=== PATIENT | male | born 1940 | race Caucasian/White ===

== ENCOUNTER 2019-06-22 05:00 | Inpatient (IN) ==
[2019-06-16 12:53] LABS: Appearance,Urine CLEAR; Bilirubin,Urine NEG (NEG); Color,Urine YELLOW; Glucose,Urine (UA) NEGATIVE (NEG); Ketones,Urine NEG (NEG); Leukocyte Esterase,Urine NEG /uL (NEG); Nitrate,Urine NEG (NEG); Protein,Urine NEG (NEG); Specific Gravity,Urine 1.014 (1.000-1.035); Urine Blood NEG mg/dL (<0.03); Urobilinogen,Urine NEG (NEG)
[2019-06-16 14:48] LABS: Blood Urea Nitrogen 19 mg/dl (8-23); Calcium 9.2 mg/dl (8.6-10.4); Carbon Dioxide 25 mmol/L (22-30); Chloride 103 mmol/L (96-108); Glomerular Filtration Rate 82; Glucose 103 mg/dL (70-105)
[2019-06-16 14:55] LABS: Basophils # (Auto) 0 K/mcL (0.0-0.3); Basophils % (Auto) 0.5 % (0.0-2.0); Eosinophils # (Auto) 0.2 K/mcL (0.0-0.7); Eosinophils % (Auto) 2.5 % (0.0-7.0); Granulocytes % (Auto) 54.2 % (38.0-78.0); Hematocrit 43.4 % (41.0-55.0); Hemoglobin 14.5 g/dL (13.5-16.5); Lymphocytes # (Auto) 2.3 K/mcL (1.5-4.8); Lymphocytes % (Auto) 34.7 % (15.5-49.0); Mean Cell Volume 96.3 fL (80.0-100.0); Mean Corpuscular HGB Conc 33.5 g/dL (31.0-36.0); Mean Platelet Volume 7.9 fL (7.4-10.4); Monocytes # (Auto) 0.5 K/mcL (0.1-0.9); Monocytes % (Auto) 8.1 % (1.0-12.0); Platelet Count 251 K/mcL (140-440); RBC 4.51 M/mcL (4.50-5.90); WBC 6.5 K/mcL (4.5-11.0)
[~2019-06-22 05:00] MED LIST: IPRATROPIUM/ALBUTEROL 3 ML AMPUL.NEB NEB PRN; SCOPOLAMINE 1 PATCH PATCH TOPICAL PRN
[2019-06-22] MEDS ORDERED: ceFAZolin 2 GM in DEXTROSE 5% IN WATER 50 ML IV SCH (06:00)
[2019-06-22] MEDS ORDERED: 0.9 % SODIUM CHLORIDE 9 ML, KETOROLAC 30 MG, ROPIVACAINE HCL/PF 49.5 ML, EPINEPHrine 0.... IJ SCH (06:00)
[2019-06-22] MEDS ORDERED: CELECOXIB 200 MG CAPSULE PO SCH (06:00)
[2019-06-22] MEDS ORDERED: oxyCODONE 10 MG TAB.ER.12H PO SCH (06:00)
[2019-06-22] MEDS ORDERED: PREGABALIN 75 MG CAPSULE PO SCH (06:00)
[2019-06-22] MEDS ORDERED: ePHEDrine 50 MG/ML AMPUL IV ONE (07:25)
[2019-06-22] MEDS ORDERED: ROPIVACAINE HCL/PF 20 ML VIAL IJ ONE (07:25)
[2019-06-22] MEDS ORDERED: ONDANSETRON 4 MG/2 ML VIAL IV ONE (07:25)
[2019-06-22] MEDS ORDERED: PROPOFOL 200 MG/20 ML VIAL IV ONE (07:25)
[2019-06-22] MEDS ORDERED: LIDOCAINE HCL/PF 100 MG/5 ML SYRINGE IV ONE (07:25)
[2019-06-22] MEDS ORDERED: KETAMINE 100 MG/ML ML IV ONE (07:25)
[2019-06-22] MEDS ORDERED: DEXAMETHASONE 10 MG/ML VIAL IV ONE (07:25)
[2019-06-22] MEDS ORDERED: TRANEXAMIC ACID 1,000 MG/10 ML VIAL IV ONE (07:25)
[2019-06-22] MEDS ORDERED: GENTAMICIN SULFATE 800 MG/20 ML VIAL IR ONE (08:24)
--- NOTE | 2019-06-22 09:00 | Brief Operative Note ---
Date of procedure: 06/22/19 Pre-op diagnosis: left knee osteoarthritis Post-op diagnosis: same Procedure: left total knee arthroplasty Grafts/Implants: Yes Anesthesia: spinal Complications: none Surgeon: Brian Lovett Top Spotter: Dahiana Pro Estimated blood loss (cc): 200 Tourniquet Time (Minutes): 56 Specimens Removed/Pathology: none sent Condition: stable Disposition: PACU
--- NOTE | 2019-06-22 09:02 | Discharge Summary ---
Ortho Discharge - TKA - Patient Instructions Diet: Regular Diet Activity: ambulate with assistive device, weight bearing as tolerated Total Knee Protocol: For Total Knee: Start ROM JOSÉ MIGUEL with stationary bike or rocking chair. Work on gaining full extension of knee. Posterior dislocation precautions provided. Hip abductor strengthening and gait training instructions provided. Apply Cryocuff as instructed. Dressing Care: May shower in 2 days - Follow Up Plan Follow Up Appointments: Dahiana Pro PA-C [Physician Freight Sorter] - 07/07/19 8:40 am Disposition: Home, Self-Care Prognosis: Good Rehab Potential: Good I certify that the patient requires SNF services: No Overall status at discharge: patient is progressing back to baseline
[2019-06-22] MEDS ORDERED: POLYETHYLENE GLYCOL 3350 17 GM PACKET PO PRN (09:03)
[2019-06-22] MEDS ORDERED: MAGNESIUM HYDROXIDE 30 ML ORAL.SUSP PO PRN (09:03)
[2019-06-22] MEDS ORDERED: BISACODYL 10 MG SUPP.RECT PR PRN (09:03)
[2019-06-22] MEDS ORDERED: ONDANSETRON 4 MG ODT TABLET SL PRN (09:03)
[2019-06-22] MEDS ORDERED: BENZOCAINE/MENTHOL 1 LOZENGE PO PRN ×2 (09:03→09:04)
[2019-06-22] MEDS ORDERED: ONDANSETRON 4 MG/2 ML VIAL IV PRN ×2 (09:03→09:04)
[2019-06-22] MEDS ORDERED: FLEETS ADULT ENEMA PR PRN (09:03)
[2019-06-22] MEDS ORDERED: TRANEXAMIC ACID 1,000 MG/10 ML VIAL IV SCH (09:03)
[2019-06-22] MEDS ORDERED: IPRATROPIUM/ALBUTEROL 3 ML AMPUL.NEB NEB PRN (09:04)
[2019-06-22] MEDS ORDERED: fentaNYL 100 MCG/2 ML VIAL IV PRN (09:04)
[2019-06-22] MEDS ORDERED: PROMETHAZINE 25 MG/ML VIAL IV PRN (09:04)
[2019-06-22] MEDS ORDERED: ACETAMINOPHEN 1,000 MG/100 ML BOTTLE IV ONE (09:04)
[2019-06-22] MEDS ORDERED: NALOXONE HCL 0.4 MG/ML VIAL IV PRN (09:04)
[2019-06-22] MEDS ORDERED: LACTATED RINGERS 250 ML IV PRN (09:04)
[2019-06-22] MEDS ORDERED: MEPERIDINE 25 MG/ML SYRINGE IV PRN (09:04)
[2019-06-22] MEDS ORDERED: diphenhydrAMINE 50 MG/ML VIAL IV PRN (09:04)
[2019-06-22] MEDS ORDERED: LACTATED RINGERS 1,000 ML IV SCH (09:15)
--- NOTE | 2019-06-22 09:35 | Operative Note ---
DATE OF OPERATION: 06/22/2019 PREOPERATIVE DIAGNOSIS: Degenerative joint disease, left knee. POSTOPERATIVE DIAGNOSIS: Degenerative joint disease, left knee. PROCEDURE: Left total knee arthroplasty. SURGEON: Vandana Lovett M.D. SUPERVISOR SPECIAL EFFECTS SURGEON: Dahiana Pro PA-C. The PA's assistance was required for the safe and efficient completion of the entire case. This provider's expertise and technical skill were required throughout the case. The PA assisted with preoperative coordination, intraoperative retraction, wound closure, dressing and splint application, as well as postoperative documentation and care coordination. ANESTHESIA: Spinal with LMA assist. ESTIMATED BLOOD LOSS: 200 mL. COMPLICATIONS: None noted. SPECIMENS REMOVED: None. DRAINS: None. TOURNIQUET TIME: 56 minutes at 300 mmHg. IMPLANTS: DePuy Attune tibial base fixed bearing size 8, cemented; DePuy Attune tibial insert fixed bearing posterior stabilized size 8, 8 mm AOX; DePuy Attune femoral posterior stabilized size 8 left, cemented; DePuy Attune patella medialized dome 38, cemented AOX; DePuy CMW2 bone cement 20 grams x5. INDICATIONS: The patient has had a long-standing history of worsening pain in the knee that has failed conservative treatment. Radiographs have confirmed advanced degenerative joint disease. After a long discussion about treatment options, the patient elected to proceed with a knee arthroplasty. The risks and benefits were discussed with the patient in detail including, but not limited to, the risks of anesthesia, problems with the heart or lungs related to anesthesia, infection, compromise or injury to the nerves and blood vessels, deep venous thrombosis, pulmonary embolism, pneumonia, continued pain after surgery, worsening pain or symptoms after surgery, swelling, loss of motion, instability, leg length discrepancy, and need for repeat surgery. DESCRIPTION OF PROCEDURE: The patient was seen in the pre-anesthesia waiting room where all questions were answered and the correct side and site were identified and marked. The patient was transferred to the operating room and administered the anesthetic and given pre-operative antibiotics. A time-out was then called. The extremity was prepped and draped, exsanguinated, and the tourniquet was inflated to 300 mmHg. A midline skin incision was then made with a standard medial parapatellar arthrotomy. Debridement of the menisci, ACL, and PCL was performed followed by balancing releases in the medial lateral plane. We then established intramedullary access to both the femur and tibia in a standard fashion. The femoral guide krissy was initially placed with the distal femoral guide, pinned into place, and the distal femoral cut was performed and checked with a flat plate. We then turned our attention to the tibia. The intramedullary guide was placed with the proximal tibial cutting block. The block was appropriately positioned off the affected side, varus and valgus was checked with the extra-medullary guide, and the block was pinned into place. The proximal tibial cut was performed and the tibia was prepared for the tibial implant with appropriate rotation. The tibia, femur, and posterior compartment were debrided of osteophytes, loose bodies, and meniscal fragments We then used the gap balancing technique to balance extension with the first two cuts and good balancing was obtained with a 10 millimeter gap block. We turned our attention back to the femur and used the referencing block and implant to size appropriately. Using the gap balancing technique for the flexion space we set our rotation of the femur off the tibial cut. Anesthesia gave the patient 1 gram of Tranexamic Acid via an intravenous route. We placed the 4 in 1 cutting block and made anterior, posterior, and chamfer cuts. Box plasty cuts were then made in a standard fashion for the posterior stabilized prosthesis. We then completed osteophyte release and posterior capsule release from the posterior compartment. Trials were placed and we chose the polyethylene insert thickness that provided the best stability in all planes. With the trials in place, we did a measured resection for a resurfacing patella. We sized the patella and placed the patella trial and performed a lateral facetectomy with the saw and rongeur. Good tracking was obtained. We removed all trials, irrigated and dried all cut surfaces. We cemented the components into place including tibia, femur and patella. We placed a trial liner and held the knee in full extension with the patella compressed while the cement cured. We then removed all excess cement and placed the final polyethylene tibiofemoral component. Irrigation with 3 liters of antibiotic saline was then performed using jet-lavage. We let the tourniquet down and coagulated bleeding vessels. We injected a 100 cubic centimeter volume including Ropivacaine 49.25 cubic centimeters at 5 milligrams per cubic centimeter, Ketorolac 30 milligrams, and Epinephrine 0.5 milligrams into 100 cubic centimeters volume of normal saline. We closed the retinaculum with #2 Stratafix and 0 Vicryl. We closed the subcutaneous tissue and skin in layers out to Dermabond on the skin. A sterile pressure dressing was applied. All needle and sponge counts were correct. The patient was transferred to the recovery room in stable condition. [email or web address] Job ID: [id number] Doc ID: [id number] Vandana Lovett MD
--- NOTE | 2019-06-22 10:05 | XRay Report ---
CLINICAL INFORMATION: Post-Op Total Knee COMPARISON: None. FINDINGS: Total knee prostheses is anatomically aligned. No osseous abnormality. Soft tissues are normal. IMPRESSION: Negative Interpreted and Authenticated by: Brian Langston 06/22/19
[2019-06-22] MEDS: LACTATED RINGERS 1,000 ML IV SCH ×3 (10:24→17:13)
[2019-06-22] MEDS: KETOROLAC 15 MG/ML VIAL IV SCH ×3 (13:24→23:31)
[2019-06-22] MEDS: HYDROcodone/APAP 10/325MG TABLET PO PRN ×2 (13:24→20:00)
[2019-06-22] MEDS: 0.9 % SODIUM CHLORIDE 10 ML SYRINGE IV SCH ×2 (13:25→20:05)
[2019-06-22] MEDS: METHOCARBAMOL 750 MG TABLET PO PRN (13:25)
[2019-06-22] MEDS: ceFAZolin 1 GM VIAL IV SCH ×2 (14:36→22:30)
[2019-06-22] MEDS: HYDROCHLOROTHIAZIDE 12.5 MG CAPSULE PO SCH (20:04)
[2019-06-22] MEDS: SENNOSIDES 1 TABLET PO SCH (20:04)
[2019-06-22] MEDS: LISINOPRIL 10 MG TABLET PO SCH (20:04)
[2019-06-22] MEDS: ASPIRIN 81 MG TAB.CHEW PO SCH (20:04)
[2019-06-22] MEDS: DOCUSATE SODIUM 100 MG CAPSULE PO SCH (20:05)
[2019-06-23] MEDS: LACTATED RINGERS 1,000 ML IV SCH ×3 (01:36→17:14)
[2019-06-23] MEDS: HYDROcodone/APAP 10/325MG TABLET PO PRN ×4 (03:10→16:05)
[2019-06-23] MEDS: 0.9 % SODIUM CHLORIDE 10 ML SYRINGE IV SCH ×3 (05:14→21:51)
[2019-06-23] MEDS: KETOROLAC 15 MG/ML VIAL IV SCH ×3 (05:14→18:33)
[2019-06-23 07:10] LABS: Hematocrit 36.6 % (41.0-55.0); Hemoglobin 12.6 g/dL (13.5-16.5)
--- NOTE | 2019-06-23 07:39 | Orthopedic Progress Note ---
Subjective Patient information: Note initiated : 06/23/19 at 7:38 am Service Date, if different from initiated Date: [] Patient: Roman Rondon 79 y/o M admitted on 06/22/19 for Left Total Knee Arthroplasty . Chief Complaint: [] Interval history: doing well. pain under control. still some urinary retention Objective Vital signs: Vital Signs Temp Pulse Resp BP Pulse Ox 06/23/19 03:06 97.7 F 71 20 110/71 93 06/22/19 23:36 97.3 F 92 H 18 102/67 91 06/22/19 19:19 97.6 F 89 20 111/67 92 06/22/19 18:50 98 06/22/19 16:56 72 06/22/19 16:00 98.5 F 75 20 120/75 96 06/22/19 13:03 72 06/22/19 12:31 72 20 122/77 97 06/22/19 11:31 71 20 119/79 96 06/22/19 11:01 71 20 122/74 95 06/22/19 10:46 76 20 124/79 95 06/22/19 10:31 74 20 125/83 94 06/22/19 10:16 98.1 F 80 20 125/78 97 06/22/19 10:00 97.4 F 82 14 118/67 96 06/22/19 09:51 97.4 F 84 14 113/68 95 06/22/19 09:36 97.4 F 74 12 114/67 100 06/22/19 09:31 77 13 105/66 100 06/22/19 09:26 69 12 102/55 98 06/22/19 09:21 97.6 F 74 12 97/58 98 Intake and Output 06/22/19 06/23/19 06/23/19 21:59 05:59 13:59 Intake Total 965 1350 Output Total 475 Balance 490 1350 Intake: IV 525 1000 Lactated Ringers 1,000 ml @ 305 375 6130 mls/hr IV .Q8H [facility] Rx#: [id number] Oral 240 350 IV - Manual Only 200 Output: Void Amount 475 Other: Meal Lunch Percent of Meal Consumed 100% Feeding Ability Independent Urine Appearance Clear Clear Urine Color Dark Yellow Bright Yellow Urine Odor Strong Normal Stool Consistency Normal for Patient # Voids 1 Weight 207 lb 11.2 oz 207 lb 11.2 oz Intake & Output: Intake & Output 06/22/19 06/23/19 06/23/19 21:59 05:59 13:59 Intake Total 965 1350 Output Total 475 Balance 490 1350 Weight 207 lb 11.2 oz 207 lb 11.2 oz Intake: IV 525 1000 Lactated Ringers 1,000 ml @ 566 262 0476 mls/hr IV .Q8H JOSE L Rx#: [id number] Oral 240 350 IV - Manual Only 200 Output: Void Amount 475 Other: Meal Lunch Percent of Meal Consumed 100% Feeding Ability Independent Urine Appearance Clear Clear Urine Color Dark Yellow Bright Yellow Urine Odor Strong Normal Stool Consistency Normal for Patient # Voids 1 Incision: Yes healing Incision clean and dry: Yes Dressing: Yes clean, Yes dry, Yes intact Weight bearing status: full Neurological exam IM: Yes abnormal gait, Yes alert, Yes oriented X3, Yes motor sensory intact, Yes neurovascular intact Extremities exam IM: No calf tenderness, Yes Foot pink and warm, Yes neurovascular intact - Labs CBC & BMP: 06/23/19 04:40 06/16/19 11:04 Labs: 06/23/19 06/16/19 04:40 11:04 Hgb 12.6 L 14.5 Hct 36.6 L 43.4 Assessment and Plan (1) Knee osteoarthritis pod 1 s/p tka wbat pain control dvt prophylaxis pt dc planning - home when medically stable and urinary retention resolving Status: Acute
[2019-06-23] MEDS: ASPIRIN 81 MG TAB.CHEW PO SCH ×2 (08:03→21:48)
[2019-06-23] MEDS: DOCUSATE SODIUM 100 MG CAPSULE PO SCH ×2 (08:03→21:48)
[2019-06-23] MEDS: TAMSULOSIN 0.4 MG CAPSULE PO SCH (08:03)
[2019-06-23] MEDS: FINASTERIDE 5 MG TABLET PO SCH (08:03)
[2019-06-23] MEDS ORDERED: FLU VACC QS2019-20(6MOS UP)/PF 60 MCG/0.5 ML SYRINGE IM ONE (10:00)
[2019-06-23] MEDS: LISINOPRIL 10 MG TABLET PO SCH (21:48)
[2019-06-23] MEDS: HYDROCHLOROTHIAZIDE 12.5 MG CAPSULE PO SCH (21:48)
[2019-06-23] MEDS: METHOCARBAMOL 750 MG TABLET PO PRN (21:49)
[2019-06-23] MEDS: SENNOSIDES 1 TABLET PO SCH (21:59)
[2019-06-24] MEDS: KETOROLAC 15 MG/ML VIAL IV SCH ×2 (00:32→05:55)
[2019-06-24] MEDS: HYDROcodone/APAP 10/325MG TABLET PO PRN ×3 (00:33→08:59)
[2019-06-24] MEDS: LACTATED RINGERS 1,000 ML IV SCH ×2 (01:36→10:10)
[2019-06-24 05:41] LABS: Hematocrit 34.3 % (41.0-55.0); Hemoglobin 11.6 g/dL (13.5-16.5)
[2019-06-24] MEDS: 0.9 % SODIUM CHLORIDE 10 ML SYRINGE IV SCH (05:55)
--- NOTE | 2019-06-24 06:45 | Discharge Summary ---
Providers - Providers Patient information: Note initiated : 06/24/19 at 6:43 am Service Date, if different from initiated Date: [] Patient: Roman Rondon 79 y/o M admitted on 06/22/19 for Left Total Knee Arthroplasty . Chief Complaint: [POD #2 s/p left TKA Patient doing very well. Denies CP, SOB, numbness/tingling, calf pain. Reports improving ambulation] Date of admission: 06/22/19 Discharge date: 06/24/19 Hospitalization Hospital Course: Patient was brought to OR on 06-22-19 for left TKA which went on without complication. He was admitted overnight for pain control and observation. During the day on 06-23-19 he was struggling to ambulate for any amount of distance so we opted to observe one more night. His ambulation and strength improved throughout the day. This morning his pain is much better and he's walking well. He will discharge home and follow up in the clinic for post op care. Discharge diagnosis: knee osteoarthritis Reason for admission: pain control and observation Procedures: left total knee arthroplasty Complications: none Exam - Exam Incision healing: Yes Incision draining: No Incision red: No Incision swollen: No Incision inflamed: No Clean and dry: Yes Weight bearing status: as tolerated Range of motion: full foot and ankle Ortho Discharge - TKA - Patient Instructions Diet: Regular Diet Activity: ambulate with assistive device, weight bearing as tolerated Total Knee Protocol: For Total Knee: Start ROM JOSÉ MIGUEL with stationary bike or rocking chair. Work on gaining full extension of knee. Posterior dislocation precautions provided. Hip abductor strengthening and gait training instructions provided. Apply Cryocuff as instructed. Dressing Care: Other (may shower today. remove JAQUAN and gauze. shower over dermabond. Pat dry and replace gauze after) - Follow Up Plan Follow Up Appointments: Dahiana Pro PA-C [Physician Excavation Laborer] - 07/07/19 8:40 am Disposition: Home, Self-Care Prognosis: Good Rehab Potential: Good I certify that the patient requires SNF services: No Overall status at discharge: patient is progressing back to baseline - Orders For Discharge Prescriptions: Aspirin [Aspirin EC] 81 mg PO BID #30 tablet.dr Transmission Status: Received by [facility] 2005 HYDROcodone/APAP 10/325MG [[place] 10-325Mg] 1 - 2 tab PO Q4H PRN #60 tab PRN Reason: Pain Prescription Printed Additional Discharge Orders: Physical Therapy at Discharge - TKA Location: None Selected Toilet Riser Discharge Order Location: None Selected Walker Location: None Selected Pending Studies Resuscitation Status Full Code Diet Regular Diet Start FriJun 22 905 Hydrocodone Bitart/Acetaminophen ([place] 10/325mg) 0 tab PO Q4HP PRN PRN Reason: PAIN LEVEL 3-6 Last Admin: 06/24/19 04:36 Dose: 1 tab Documented by: Admin: 06/24/19 00:33 Dose: 1 tab Documented by: Admin: 06/23/19 16:05 Dose: 1 tab Documented by: Admin: 06/23/19 11:00 Dose: 1 tab Documented by: Admin: 06/23/19 08:03 Dose: 1 tab Documented by: Admin: 06/23/19 03:10 Dose: 2 tab Documented by: Admin: 06/22/19 20:00 Dose: 1 tab Documented by: Admin: 06/22/19 13:24 Dose: 2 tab Documented by: MARY Aspirin (Aspirin) 81 mg PO BID [facility] Last Admin: 06/23/19 21:48 Dose: 81 mg Documented by: Admin: 06/23/19 08:03 Dose: 81 mg Documented by: Admin: 06/22/19 20:04 Dose: 81 mg Documented by: KALYN Docusate Sodium (Colace) 100 mg PO BID [facility] Last Admin: 06/23/19 21:48 Dose: 100 mg Documented by: Admin: 06/23/19 08:03 Dose: 100 mg Documented by: Admin: 06/22/19 20:05 Dose: 100 mg Documented by: KALYN Finasteride (Proscar) 5 mg PO QDAY [facility] Last Admin: 06/23/19 08:03 Dose: 5 mg Documented by: SIDNEY Hydrochlorothiazide (Oretic) 12.5 mg PO HS [facility] Last Admin: 06/23/19 21:48 Dose: 12.5 mg Documented by: Admin: 06/22/19 20:04 Dose: 12.5 mg Documented by: KALYN Lactated Ringer's (Lactated Ringers) 1,000 mls @ 125 mls/hr IV .Q8H [facility] Last Admin: 06/24/19 01:36 Dose: Not Given Documented by: Admin: 06/23/19 17:14 Dose: Not Given Documented by: Admin: 06/23/19 09:31 Dose: Not Given Documented by: [email or web address] Admin: 06/23/19 01:36 Dose: Not Given Documented by: Infusion: 06/22/19 23:07 Dose: 0 mls/hr Documented by: Admin: 06/22/19 17:13 Dose: Not Given Documented by: Admin: 06/22/19 14:36 Dose: 125 mls/hr Documented by: Infusion: 06/22/19 14:36 Dose: 125 mls/hr Documented by: Admin: 06/22/19 10:24 Dose: 125 mls/hr Documented by: MARY Lisinopril (Zestril) 10 mg PO [facility] Last Admin: 06/23/19 21:48 Dose: 10 mg Documented by: Admin: 06/22/19 20:04 Dose: 10 mg Documented by: KALYN Methocarbamol (Robaxin) 750 mg PO Q6HP PRN PRN Reason: Muscle Spasm Last Admin: 06/23/19 21:49 Dose: 750 mg Documented by: Admin: 06/22/19 13:25 Dose: 750 mg Documented by: MARY Ondansetron HCl (Zofran Odt) 4 mg SL Q4HP PRN PRN Reason: Nausea And Vomiting Last Admin: 06/23/19 21:56 Dose: 4 mg Documented by: JULIA Polyethylene Glycol (Miralax) 17 gm PO DAILYP PRN PRN Reason: Constipation Last Admin: 06/23/19 23:17 Dose: 17 gm Documented by: FELY Blackmon (Senokot) 2 tab PO HS [facility] Last Admin: 06/23/19 21:59 Dose: 2 tab Documented by: Admin: 06/22/19 20:04 Dose: 2 tab Documented by: KALYN Sodium Chloride (Saline Flush) 10 ml IV Q8 [facility] Last Admin: 06/24/19 05:55 Dose: 10 ml Documented by: Admin: 06/23/19 21:51 Dose: 10 ml Documented by: Admin: 06/23/19 16:05 Dose: 10 ml Documented by: [email or web address] Admin: 06/23/19 05:14 Dose: 10 ml Documented by: Admin: 06/22/19 20:05 Dose: Not Given Documented by: Admin: 06/22/19 13:25 Dose: 10 ml Documented by: MARY Tamsulosin HCl (Flomax) 0.4 mg PO DAILY [facility]SE [facility] Last Admin: 06/23/19 08:03 Dose: 0.4 mg Documented by: [email or web address] Shift Summary 06/24/19 05:11 Shift Summary by Kiana Mcclain Pt is A&O, a little forgetful at times. VSS on RA. Up to BR w/CGA, FWW, & GB. Used CPM for ~1.5 hours last night. IV to LFA, SL. Pt received [place] 10 mg x2, Robaxin x1, and scheduled Toradol for pain. Dressing to left knee CDI. Pt has urinary retention issues - voids ~200cc at a time. Denies numbness/tingling. Pt did feel a little bit nauseous around 2200 and received Zofran SL x1. Pt also requested Miralax and received that around 2315. Will update with verbal report. Initialized on 06/24/19 05:11 - END OF NOTE
[2019-06-24] MEDS: ASPIRIN 81 MG TAB.CHEW PO SCH (08:59)
[2019-06-24] MEDS: FINASTERIDE 5 MG TABLET PO SCH (08:59)
[2019-06-24] MEDS: DOCUSATE SODIUM 100 MG CAPSULE PO SCH (08:59)
[2019-06-24] MEDS: TAMSULOSIN 0.4 MG CAPSULE PO SCH (08:59)
== END 2019-06-24 12:45 | disposition home or self-care (01) | DRG 470 ==
LOC: MEDSUR 05:00
PROVIDERS: ADMIT Orthopaedic Surgery Sports Medicine; ATTEND Orthopaedic Surgery Sports Medicine